=== PATIENT | female | born 1950 | race Caucasian/White ===

== ENCOUNTER 2017-09-12 19:32 | Emergency (ER) | payer OTHER ==
[~2017-09-12] VITALS: Ht 165.1 cm; Wt 68.0 kg
[~2017-09-12 19:32] MED LIST: ALIS150T PO; AMLO10TA80 PO; AMLO1TAB15 PO; ASPI-1159 PO; ATOR40TA70 PO; BRIM.2 RIGHTEYE; CLON0.1T PO; FAMO20TA8 PO; GABA-531 PO; GLV25 PO; METO5TAB86 PO; NEBI10TA2 PO; POTASSIUM CL; SITA100T11 PO; TRAV5DRO4 RIGHTEYE; VALS1TAB74 PO
[2017-09-12] MEDS ORDERED: ACETAMINOPHEN 325MG TABLET PO ONE (23:15)
[2017-09-13 02:22] VITALS: BP 133/77
== END 2017-09-13 02:32 | disposition home or self-care (01) ==
LOC: ER 20:38
DX: S09.8XXA Other specified injuries of head, initial encounter (principal); S10.83XA Contusion of other specified part of neck, initial encounter; S40.011A Contusion of right shoulder, initial encounter; S80.01XA Contusion of right knee, initial encounter; V49.59XA Passenger injured in collision with other motor vehicles in traffic accident, initial encounter; I10 Essential (primary) hypertension; E11.9 Type 2 diabetes mellitus without complications; H40.9 Unspecified glaucoma; Z79.82 Long term (current) use of aspirin; Y93.89 Activity, other specified; Y92.89 Other specified places as the place of occurrence of the external cause; Y99.8 Other external cause status; Z79.84 Long term (current) use of oral hypoglycemic drugs; Z88.5 Allergy status to narcotic agent
CPT/HCPCS: 70450; 72125; 73030; 73564; 99284